=== PATIENT | female | born 1945 | race Caucasian/White ===

== ENCOUNTER 2017-03-27 11:50 | Emergency (ER) | payer MEDICARE ==
[~2017-03-27] VITALS: Ht 160 cm; Wt 95.3 kg
[~2017-03-27 11:50] MED LIST: AMLO10TA4 PO; AMLO5TAB2 PO; CHOL100017 PO; LISI10TA PO; LOSA100T6 PO
[2017-03-27 12:15] VITALS: BP 158/70
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
[2017-03-27] MEDS ORDERED: NAPROXEN 500 MG TABLET PO ONE (13:00)
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
[2017-03-27] MEDS ORDERED: NAPR500T3 PO (14:03)
[2017-03-27] MEDS ORDERED: CYCL5TAB PO (14:03)
== END 2017-03-27 14:08 | disposition home or self-care (01) ==
LOC: ER 11:50
DX: S60.222A Contusion of left hand, initial encounter (principal); M79.622 Pain in left upper arm; M25.562 Pain in left knee; M54.2 Cervicalgia; M54.5 Low back pain; I10 Essential (primary) hypertension; Z90.49 Acquired absence of other specified parts of digestive tract; Z88.5 Allergy status to narcotic agent; V59.40XA Driver of pick-up truck or van injured in collision with unspecified motor vehicles in traffic accident, initial encounter; Y93.I9 Activity, other involving external motion; Y92.410 Unspecified street and highway as the place of occurrence of the external cause; Y99.8 Other external cause status
CPT/HCPCS: 72100; 73060; 73130; 73564; 99284-25

== ENCOUNTER 2018-01-31 03:28 | Emergency (ER) | payer MEDICARE, OTHER ==
[2018-01-31] MEDS ORDERED: KETOROLAC 30 MG/ML INJ. (03:52)
[2018-01-31 03:57] LABS: ADD MAN DIFF? NO
[2018-01-31] MEDS: KETOROLAC 30 MG/ML INJ. IV (04:02)
[2018-01-31 04:06] LABS: BASO % 1 % (0-3); EOS # 0.1 x10^3/uL (0.0-0.7); EOS % 1 % (0-3); HEMATOCRIT 38.3 % (36.0-47.0); HEMOGLOBIN 13.1 g/dL (12.0-15.5); LYMPH # 2.4 x10^3/uL (1.0-4.8); LYMPH % 32 % (24-48); MEAN CORPUSCULAR HEMOGLOBIN 31 pg (25-35); MEAN CORPUSCULAR HGB CONC 34 g/dL (31-37); MEAN CORPUSCULAR VOLUME 92 fL (79-100); MONO # 0.7 x10^3/uL (0.0-1.1); MONO % 9 % (0-9); NEUT # 4.4 x10^3uL (1.8-7.7); NEUT % 58 % (31-73); PLATELET COUNT 297 x10^3/uL (140-400); RED BLOOD COUNT 4.16 x10^6/uL (3.50-5.40); RED CELL DISTRIBUTION WIDTH 13.9 % (11.5-14.5); WHITE BLOOD COUNT 7.7 x10^3/uL (4.0-11.0)
[2018-01-31 04:07] LABS: BILIRUBIN,URINE SMALL (NEG); CLARITY,URINE CLEAR; COLOR,URINE YELLOW; GLUCOSE,URINE NEGATIVE (NEG); NITRITE,URINE NEGATIVE (NEG); PROTEIN,URINE NEGATIVE (NEG-TRACE)
[2018-01-31 04:11] LABS: ANION GAP 11 (6-14); BLOOD UREA NITROGEN 21 mg/dL (7-20); CALCIUM 8.9 mg/dL (8.5-10.1); CARBON DIOXIDE 27 mmol/L (21-32); CHLORIDE 107 mmol/L (98-107); CREATININE 0.9 mg/dL (0.6-1.0); GFR 61.9; GLUCOSE 147 mg/dL (70-99); SODIUM 145 mmol/L (136-145)
[2018-01-31 04:28] LABS: BACTERIA,URINE MODERATE /HPF (0-FEW); HYALINE CASTS, URINE FEW /HPF; SQUAMOUS EPITHELIAL CELL,UR FEW /LPF; WBC,URINE >40 /HPF (0-4)
[2018-01-31] MEDS: fentaNYL PF VIAL 100 MCG/2 ML VIAL IV (04:29)
[2018-01-31] MEDS: IV NORMAL SALINE 1000ML BAG 1,000 ML IV (04:30)
[2018-01-31] MEDS: HYDROcodone/APAP 7.5/325MG 1 TAB TABLET PO (05:34)
== END 2018-01-31 05:53 | disposition home or self-care (01) ==
LOC: ER 03:28
DX: N13.2 Hydronephrosis with renal and ureteral calculous obstruction (principal); I10 Essential (primary) hypertension; Z90.49 Acquired absence of other specified parts of digestive tract; Z88.5 Allergy status to narcotic agent
CPT/HCPCS: 36415; 74176; 80048; 81001; 85025; 87086; 96365; 96375; 99285-25; J0690; J1885; J3010; J7030

== ENCOUNTER 2019-07-11 22:37 | Emergency (ER) | payer OTHER, MEDICARE ==
[2018-01-31 05:52] VITALS: BP 174/74
[~2019-07-11] VITALS: Ht 160 cm; Wt 113.4 kg
[~2019-07-11 22:37] MED LIST changes: +AMLO5TAB10 PO; -AMLO5TAB2 PO; +CYCL5TAB PO; +HYDR-2765 PO; +LEVO500T59 PO; +LOSA100T14 PO; -LOSA100T6 PO; +NAPR-514 PO
--- NOTE | 2019-07-11 23:05 | PHYS DOC ---
Past Medical History Past Medical History: Hypertension Past Surgical History: Cholecystectomy, Additional Past Surgical Histo: SKIN CANCER Alcohol Use: None Drug Use: None Adult General Chief Complaint Chief Complaint: WRIST PAIN HPI HPI Patient is a 73 year old female who presents with pain after fall, landed on right elbow and shoulder, felt a pop in the shoulder. Since then pain, this occurred this evening. No head injury or neck pain she is resting in no distress. Motrin daily for aches and pain. she is resting in no distress Review of Systems Review of Systems Constitutional: Denies fever or chills [] Eyes: Denies change in visual acuity, redness, or eye pain [] HENT: Denies nasal congestion or sore throat [] Respiratory: Denies cough or shortness of breath [] Cardiovascular: No additional information not addressed in HPI [] GI: Denies abdominal pain, nausea, vomiting Musculoskeletal: Denies back pain . C/o right elbow and shoulder pain Integument: Denies rash or skin lesions [] Neurologic: Denies headache, focal weakness or sensory changes [] Endocrine: Denies polyuria or polydipsia [] All other systems were reviewed and found to be within normal limits, except as documented in this note. Current Medications Current Medications Current Medications Medications (Trade) Dose Ordered Sig/Joon Start Time Stop Time Status Last Admin Dose Admin Acetaminophen/ Hydrocodone Bitart (Lortab 5/325) 1 tab 1X ONCE 07/11/19 23:15 07/11/19 23:16 DC 07/11/19 23:31 1 TAB Allergies Allergies Allergies Coded Allergies Type Severity Reaction Last Updated Verified morphine Allergy Mild Nausea and Vomiting 01/13/15 Yes Penicillins Allergy Unknown 07/11/19 Yes Physical Exam Physical Exam Constitutional: Well developed, well nourished, no acute distress, non-toxic appearance. [] HENT: Normocephalic, atraumatic, bilateral external ears normal, oropharynx moist, no oral exudates, nose normal. [] Eyes: PERRLA, EOMI, conjunctiva normal, no discharge. [] Neck: Normal range of motion, no tenderness, supple, no stridor. [] Cardiovascular:Heart rate regular rhythm, no murmur [] Lungs & Thorax: Bilateral breath sounds clear to auscultation [] Abdomen: Bowel sounds normal, soft, no tenderness, no masses, no pulsatile masses. [] Skin: Warm, dry, no erythema, no rash. [] Back: No tenderness, no CVA tenderness. [] Extremities: no cyanosis, no clubbing, ROM intact, no edema. Right anterior shoulder and posterior elbow TTP, no deformity or signs of trauma. Intact pulses and distal cap refill. Normal ROM Neurologic: Alert and oriented X 3, normal motor function, normal sensory function, no focal deficits noted. [] Psychologic: Affect normal, judgement normal, mood normal. [] Current Patient Data Vital Signs Vital Signs Date Time Temp Pulse Resp B/P (MAP) Pulse Ox O2 Delivery O2 Flow Rate FiO2 07/11/19 23:31 17 98 07/11/19 22:50 97.7 72 158/81 (106) Room Air 97.7 EKG EKG [] Radiology/Procedures Radiology/Procedures Xray right shoulder and right elbow:[]No acute finding Impressions: Fall, right shoulder and elbow strain/pain Course & Med Decision Making Course & Med Decision Making Pertinent Labs and Imaging studies reviewed. (See chart for details) []Patient appears well, minor fall. Right shoulder and elbow pain. No signs of trauma. No head injury or neck pain [place] for pain Xrays right shoulder and elbow: WNL Stable for home care, RICE, Short course of [place] Educated on home care fu and reasons to return to the ER Vania Disclaimer Vania Disclaimer This electronic medical record was generated, in whole or in part, using a voice recognition dictation system. Departure Departure Impression: Primary Impression: Fall Additional Impressions: Right shoulder injury Right elbow pain Disposition: HOME, SELF-CARE Condition: STABLE Referrals: UNKNOWN PCP NAME (PCP) [facility] Patient Instructions: Elbow Injury, Shoulder Pain, [id number] Additional Instructions: Normal xrays Rest ice and slow range of motion Motrin and short course of [place] as prescribed Call your doctor for follow up, return for any concerns or worsening symptoms Problem Qualifiers Primary Impression: Fall Encounter type: initial encounter Qualified Codes: W19.XXXA - Unspecified fall, initial encounter Additional Impressions: Right shoulder injury Encounter type: initial encounter Qualified Codes: S49.91XA - Unspecified injury of right shoulder and upper arm, initial encounter TRACI HAN APRN Jul 11, 2019 23:05
[2019-07-11] MEDS ORDERED: HYDROcodone/APAP 5/325MG 1 TAB TABLET PO ONE (23:15)
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
== END 2019-07-11 23:42 | disposition home or self-care (01) ==
LOC: ER 22:37
DX: S49.91XA Unspecified injury of right shoulder and upper arm, initial encounter (principal); M25.521 Pain in right elbow; I10 Essential (primary) hypertension; Z88.0 Allergy status to penicillin; Z88.5 Allergy status to narcotic agent; W18.39XA Other fall on same level, initial encounter; Y93.89 Activity, other specified; Y92.89 Other specified places as the place of occurrence of the external cause; Y99.8 Other external cause status
CPT/HCPCS: 73030; 73080; 99284

== ENCOUNTER 2019-07-22 13:32 | Emergency (ER) | payer MEDICARE, MEDICAID ==
[~2019-07-22] VITALS: Ht 160 cm; Wt 113.4 kg
[2019-07-22 13:44] VITALS: BP 172/83
[2019-07-22] MEDS ORDERED: DICL100G18 TP (14:05)
[2019-07-22] MEDS ORDERED: GABA300C18 PO (14:05)
[2019-07-22] MEDS ORDERED: METH4TAB2 PO (14:05)
[2019-07-22] MEDS ORDERED: HYDR-3164 PO (14:05)
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
== END 2019-07-22 14:11 | disposition home or self-care (01) ==
LOC: ER 13:32
DX: M25.511 Pain in right shoulder (principal); I10 Essential (primary) hypertension; Z88.0 Allergy status to penicillin; Z88.5 Allergy status to narcotic agent
CPT/HCPCS: 99283

== ENCOUNTER 2019-10-19 20:47 | Emergency (ER) | payer MEDICARE, MEDICAID ==
[~2019-10-19] VITALS: Ht 160 cm; Wt 81.8 kg
[~2019-10-19 20:47] MED LIST changes: +DICL100G18 TP; +GABA300C18 PO; +HYDR-3164 PO; +METH4TAB2 PO
[2019-10-19] MEDS ORDERED: IPRATRPIUM/ALBUTEROL 0.5/2.5MG 3 ML NEBU. NEB ONE (21:45)
--- NOTE | 2019-10-19 22:10 | RAD ---
Chest, PA and Lateral: Technique: PA and lateral views of the chest were obtained. History: Cough. Comparison: None. Findings: The heart and pulmonary vasculature appear within normal limits. The lungs are clear. The pleural margins are clear. Moderate degenerative changes thoracic spine. Impression: No acute chest process is seen. Electronically signed by: Leonides Lara MD (10/19/2019 10:06 PM) [facility]
[2019-10-19] MEDS ORDERED: methylPREDNISolone SOD SUCC PF 125 MG/2 ML VIAL. IV ONE (22:30)
[2019-10-19] MEDS ORDERED: ALBUTEROL SULFATE 2.5 MG/3 ML NEBU. NEB ONE (22:30)
[2019-10-19] MEDS ORDERED: HYDROcodone/APAP 5/325MG 1 TAB TABLET PO ONE (22:30)
[2019-10-19] MEDS ORDERED: methylPREDNISolone SOD SUCC PF 125 MG/2 ML VIAL. IM STA (22:57)
[2019-10-19] MEDS ORDERED: DOXY100T PO (23:35)
[2019-10-19] MEDS ORDERED: PRED20TA PO (23:35)
[2019-10-19] MEDS ORDERED: BENZ100C PO (23:35)
[2019-10-19] MEDS ORDERED: VENTOLIN HFA18 GM INH (23:35)
--- NOTE | 2019-10-19 23:36 | PHYS DOC ---
Past Medical History Past Medical History: Hypertension, Kidney Stone (REECE RINCON APRN) Past Surgical History: No Surgical History, Cholecystectomy, Additional Past Surgical Histo: SKIN CANCER (REECE RINCON APRN) Alcohol Use: None Drug Use: None (REECE RINCON APRN) Attending Signature I have participated in the care of this patient and I have reviewed and agree with all pertinent clinical information above including history, exam, and recommendations. (KATHERINE DIAZ MD) Adult General Chief Complaint Chief Complaint: COUGH HPI HPI Patient is a 73 year old female who presents to the emergency department with complaints of a cough for the last 2 weeks. Patient states she has been wheezing and feels short of breath or cough. patient states she has been unable to produce any sputum with the cough. She reports that she had a fever in the b eginning of her illness but denies any recent fever. Patient states she has coughed so hard that she has vomited and also urinated in her brief. She denies any sore throat ear pain, headache, dizziness, nausea, diarrhea, abdominal pain, back pain, dysuria, increased urinary frequency, or hemoptysis. she currently denies any pain, she reports fatigue and just not feeling well. Patient denies any use of tobacco products or history of any lung problems. All other ROS is neg unless otherwise noted in HPI. (REECE RINCON APRN) Review of Systems Review of Systems See Above (REECE RINCON APRN) Current Medications Current Medications Current Medications Medications (Trade) Dose Ordered Sig/Joon Start Time Stop Time Status Last Admin Dose Admin Acetaminophen/ Hydrocodone Bitart (Lortab 5/325) 1 tab 1X ONCE 10/19/19 22:30 10/19/19 22:31 DC 10/19/19 22:56 1 TAB Albuterol Sulfate (Ventolin Neb Soln) 2.5 mg 1X ONCE 10/19/19 22:30 10/19/19 22:31 DC 10/19/19 22:41 2.5 MG Albuterol/ Ipratropium (Duoneb) 3 ml 1X ONCE 10/19/19 21:45 10/19/19 21:46 DC 10/19/19 22:03 3 ML Methylprednisolone Sodium Succinate (SOLU-Medrol 125MG VIAL) 125 mg 1X STAT 10/19/19 22:57 10/19/19 23:12 DC 10/19/19 22:57 125 MG (KATHERINE DIAZ MD) Allergies Allergies Allergies Coded Allergies Type Severity Reaction Last Updated Verified morphine Allergy Mild Nausea and Vomiting 01/13/15 Yes Penicillins Allergy Unknown 07/11/19 Yes (KATHERINE DIAZ MD) Physical Exam Physical Exam See Above Constitutional: Well developed, well nourished, no acute distress, non-toxic appearance. [] HENT: Normocephalic, atraumatic, bilateral external ears normal, oropharynx moist, no oral exudates, nose normal. [] Eyes: PERRLA, EOMI, conjunctiva normal, no discharge. [] Neck: Normal range of motion, no tenderness, supple, no stridor. [] Cardiovascular:Heart rate regular rhythm, no murmur [] Lungs & Thorax: bilateral lung sounds coarse with expiratory wheezing, no retractions, regular rate, patient speaking in full sentences Skin: Warm, dry, no erythema, no rash. [] Back: No tenderness Extremities: No cyanosis, ROM intact, no edema. [] Neurologic: Alert and oriented X 3, no focal deficits noted. [] Psychologic: Affect normal, judgement normal, mood normal. [] (REECE RINCON APRN) Current Patient Data Vital Signs Vital Signs Date Time Temp Pulse Resp B/P (MAP) Pulse Ox O2 Delivery O2 Flow Rate FiO2 10/20/19 00:02 78 20 167/77 (107) 98 Room Air 10/19/19 21:36 98.3 98.3 (KATHERINE DIAZ MD) EKG EKG [] (REECE RINCON APRN) Radiology/Procedures Radiology/Procedures [] (REECE RINCON APRN) Course & Med Decision Making Course & Med Decision Making Pertinent Labs and Imaging studies reviewed. (See chart for details) [] (REECE RINCON APRN) Dragon Disclaimer Dragon Disclaimer This electronic medical record was generated, in whole or in part, using a voice recognition dictation system. (REECE RINCON APRN) Departure Departure Impression: Primary Impression: Cough in adult patient Additional Impression: Acute wheezy bronchitis Disposition: 01 HOME, SELF-CARE Condition: STABLE Referrals: NO PCP (PCP) Patient Instructions: Acute Bronchitis, [id number] Additional Instructions: Fill prescription(s) and use as directed. Recommend use of a Cool mist humidifier in room at bedtime. Alternate Tylenol or ibuprofen as needed for pain/fever. Increase clear fluids. Avoid airway triggers such as smoke, fragrance, dust, and pollen. Follow-up with your primary care doctor in 1-2 days, return to the ER if symptoms worsen. Scripts Prednisone (PREDNISONE) 20 Mg Tablet 60 MG PO DAILY for 3 Days, #9 TAB 0 Refills Start taking tomorrow 10/20/19 Prov: REECE RINCON SENIOR INFORMATION DEVELOPER 10/19/19 Albuterol Sulfate (VENTOLIN HFA INHALER) 18 Gm Hfa.aer.ad 2 PUFF INH Q4HRS PRN for WHEEZING for 30 Days, #1 INHALER 0 Refills Prov: REECE RINCON SENIOR INFORMATION DEVELOPER 10/19/19 Benzonatate (TESSALON PERLE) 100 Mg Capsule 1 CAP PO TID PRN for COUGH for 7 Days, #21 CAP 0 Refills Prov: REECE RINCON SENIOR INFORMATION DEVELOPER 10/19/19 Doxycycline Hyclate (DOXYCYCLINE HYCLATE) 100 Mg Tablet 1 TAB PO BID, #14 TAB 0 Refills Prov: REECE RINCON SENIOR INFORMATION DEVELOPER 10/19/19 Problem Qualifiers REECE RINCON SENIOR INFORMATION DEVELOPER Oct 19, 2019 23:36 KATHERINE DIAZ MD Oct 20, 2019 03:59
[2019-10-20 00:02] VITALS: BP 167/77
== END 2019-10-20 00:04 | disposition home or self-care (01) ==
LOC: ER 20:47
DX: J20.9 Acute bronchitis, unspecified (principal); R05 Cough; R06.2 Wheezing; R06.02 Shortness of breath; I10 Essential (primary) hypertension; Z87.442 Personal history of urinary calculi; Z90.49 Acquired absence of other specified parts of digestive tract; Z98.890 Other specified postprocedural states; Z85.828 Personal history of other malignant neoplasm of skin; Z88.0 Allergy status to penicillin; Z88.6 Allergy status to analgesic agent
CPT/HCPCS: 71046; 94640; 96372; 99284; J2930; J7613; J7620

== ENCOUNTER 2019-11-02 22:57 | Emergency (ER) | payer MEDICARE, MEDICAID ==
[~2019-11-02] VITALS: Ht 160 cm; Wt 81.0 kg
[~2019-11-02 22:57] MED LIST changes: +BENZ100C PO; +DOXY100T PO; +PRED20TA PO; +VENTOLIN HFA18 GM INH
[2019-11-03 00:20] VITALS: BP 180/98
== END 2019-11-03 03:51 | disposition left against medical advice (07) ==
LOC: ER 22:57
DX: R05 Cough (principal); Z53.21 Procedure and treatment not carried out due to patient leaving prior to being seen by health care provider